=== PATIENT | female | born 1960 | race Caucasian/White ===

== ENCOUNTER → 2016-08-01 | Outpatient (CLI) | payer OTHER ==
--- NOTE | 2016-08-02 09:21 | MR ---
EXAMINATION TYPE: MR shoulder LT wo con DATE OF EXAM: 08/01/2016 8:09 PM COMPARISON: NONE HISTORY: Left shoulder pain, rot cuff syndrome per order. Severe pain with difficulty raising arm ove rhead for 3 months per patient. TECHNIQUE: Multiplanar, multisequence imaging of the left shoulder is performed without contrast. FINDINGS: Rotator Cuff: There is full-thickness partial tear mid substance of the supraspinatus tendon measurin g roughly 1.0 cm anterior posterior dimension on parasagittal image 15 and 2.0 cm in transverse dimen alicja on paracoronal image 12. The infraspinatus tendon is intact and the humeral head attachment . Th ere is mild generalized atrophy of the supraspinatus muscle bulk. Seen best on sagittal images there is partial tear involving the superior one third fibers of the subscapularis tendon on sagittal image 12. Acromioclavicular Joint: Acromioclavicular joint is felt within normal limits. Distal acromion morpho logy is preserved. Glenohumeral Joint: There is moderate glenohumeral joint effusion. Joint space and synovial loss is p resent. No significant spurring is seen. There is nonsimple fluid extending from glenohumeral joint into the subdeltoid/subacromial bursa as w ell as in the suprascapular level. There is diffuse low intense signal or structures within the fluid . Labrum: Retracted tear of the superior labrum is present. Biceps Tendon: The long head of biceps is in normal location within bicipital groove distally. There is retracted stump identified seen best on sagittal image 18 just above the humeral head of the mayela l attachment. Bone marrow signal: There is heterogeneous increased T2 signal involving the superior lateral humeral head. There is some more prominent areas of bony irregularity and focal low T1 signal. Early erosive changes need to be considered. Other: No additional significant abnormality is appreciated. IMPRESSION: 1. Large nonsimple glenohumeral fluid collection with subdeltoid and subacromial as well as infraclav icular extension. Differential includes primary synovial osteochondromatosis versus rheumatoid arthri tis with rice bodies. Clinical correlation and correlation with joint aspiration should be considered . Synovial biopsy can BE considered if there is uncertainty to etiology. 2. Retracted tear of long head of biceps from labral attachment which is also torn. 3. Full-thickness tear involving the anterior fibers of the mid substance of the supraspinatus tendon . 4. Partial tear involving superior fibers of the subscapularis tendon. 5. Moderate to severe glenohumeral joint space loss or underlying osteoarthritis. Early erosive martin es humeral head level may be present. Correlate for underlying rheumatoid arthritis.
== END | disposition home or self-care (01) ==
LOC: RADMRIMAIN 19:24
PROVIDERS: ATTEND Internal Medicine Rheumatology
DX: M75.102 Unspecified rotator cuff tear or rupture of left shoulder, not specified as traumatic (principal); S46.112A Strain of muscle, fascia and tendon of long head of biceps, left arm, initial encounter; S46.812A Strain of other muscles, fascia and tendons at shoulder and upper arm level, left arm, initial encounter; M85.88 Other specified disorders of bone density and structure, other site

== ENCOUNTER → 2016-11-23 | Outpatient (CLI) | payer OTHER ==
[2016-11-23 15:11] LABS: Blood Urea Nitrogen 15 mg/dL (7-17); Non-African American GFR(MDRD) >60 (>60 ml/min/1.73 sqM)
--- NOTE | 2016-11-23 16:27 | CT ---
EXAMINATION TYPE: CT urogram wo/w con DATE OF EXAM: 11/23/2016 COMPARISON: NONE HISTORY: Bilateral flank pain. N13.30 Hydronephrosis,N32.3Diverticulum of bladder CT DLP: 777.1 mGycm CONTRAST: Performed and with IV Contrast, patient injected with 100 mL of Omnipaque 300. CT Urography was performed with unenhanced followed by enhanced images of the kidneys, ureters and ur inary bladder. Delayed images were obtained. 3d reconstruction was perfromed at a separate work sta tion. FINDINGS: KIDNEYS/BLADDER: No hydronephrosis. No nephrolithiasis. No distinct renal mass. Urinary bladder is free of wall thickening. There is a diverticulum arising from the right lateral wall of the urinary bladder measuring approximately 3.1 x 2.0 cm and is located directly adjacent to the UVJ. LUNG BASES-: No visible nodule. No infiltrate. LIVER/GB: No calcified gallstones. No space occupying hepatic lesion. Biliary tree is of normal ca liber. PANCREAS: No inflammation. No distinct mass. SPLEEN: No splenic enlargement. No lesion seen. ADRENALS: No nodule. No thickening. BOWEL: Normal appendix. Normal bowel caliber. No inflammation. GENITAL ORGANS: No gross abnormality. LYMPH NODES: No greater than 1cm abdominal or pelvic lymph nodes are appreciated. AORTA: Atheromatous changes of the abdominal aorta without aneurysm. OSSEOUS STRUCTURES: No significant abnormality is seen. OTHER: No significant additional abnormality is seen. IMPRESSION: 1. No evidence for [place] hydronephrosis. As noted there is a urinary bladder diverticulum right later al wall adjacent to the right UVJ.
== END ==
LOC: RADCTMAIN 14:33
PROVIDERS: ATTEND Urology
DX: N32.3 Diverticulum of bladder (principal)
CPT/HCPCS: 82565; 84520; 74178; 36415; 74400; Q9967

== ENCOUNTER → 2019-02-22 | Outpatient (CLI) | payer MEDICARE, OTHER ==
--- NOTE | 2019-02-22 09:10 | BD ---
EXAMINATION TYPE: Axial Bone Density DATE OF EXAM: 02/22/2019 COMPARISON: NONE CLINICAL HISTORY: Z 79.52 Height: 66 inches Weight: 128 FRAX RISK QUESTIONS: Alcohol (3 or more units per day): no Family History (Parent hip fracture): no Glucocorticoids (More than 3mos): yes (Ex: prednisone, prednisolone, methylprednisolone, dexamethasone, and hydrocortisone). History of Fracture in Adulthood: no Secondary Osteoporosis: 1. Type 1 Diabetes: no 2. Hyperthyroidism: no 3. Menopause before 45: no, about 45 4. Malnutrition: no 5. Chronic liver disease: no Rheumatoid Arthritis: yes Current Tobacco Use: no RISK FACTORS HISTORY OF: Family History of Osteoporosis: unsure Active: yes Diet low in dairy products/other sources of calcium: somewhat; servings throughout the week; not alw ays daily Postmenopausal woman: yes Take estrogen and/or progesterone medications: not now How long: hormonal contraceptives on & off for over 10 years Lost more than 2 inches in height since high school: no Frequent falls: no Poor Health: no Hyperparathyroidism: no Adrenal Insufficiency: no MEDICATIONS: Prednisone or other steroids: yes How Long: started 2009 Thyroid Medications: no Osteoporosis Medications: no Additional Medications: Methotrexate, cholesterol meds, blood pressure meds Additional History: EXAM MEASUREMENTS: Bone mineral densitometry was performed using the [employer] System. Bone mineral density as measured about the Lumbar spine is: ----- L1-L4(G/cm2): 1.011 T Score Values are as follows: ----- L2: -1.8 ----- L3: -1.0 ----- L4: -1.3 ----- L1-L4: -1.4 Bone mineral density BASELINE Bone mineral density about the R hip (g/cm2): 0.775 Bone mineral density about the L hip (g/cm2): 0.741 T Score values are as follows: -----R Neck: -1.9 -----L Neck: -2.1 -----R Total: -2.4 -----L Total: -2.7 Bone mineral density BASELINE IMPRESSION: Osteoporosis (T Score less than -2.5). There is increased fracture risk and therapy is usually indicated based on age. Re-Screen 1-2 years. NOTE: T-SCORE=SD OF THE YOUNG ADULT MEAN.
== END | disposition home or self-care (01) ==
LOC: RADBDWWP 07:56
PROVIDERS: ATTEND Internal Medicine Rheumatology
DX: M81.0 Age-related osteoporosis without current pathological fracture (principal); Z79.52 Long term (current) use of systemic steroids
CPT/HCPCS: 77080